=== PATIENT | female | born 2000 | race Caucasian/White ===

== ENCOUNTER 2020-09-18 10:52 | Emergency (ER) | payer OTHER ==
[2020-09-18] MEDS ORDERED: ACETAMINOPHEN 325 MG TABLET PO ONE (11:38)
--- NOTE | 2020-09-18 11:39 | ER Document Report ---
ED Medical Screen (RME) - General Chief Complaint: Lower Abdominal Pain Stated Complaint: LOWBER ABDOMINAL PAIN Time Seen by Provider: 09/18/20 11:36 Primary Care Provider: ASHELY ROGERS CPNP [Primary Care Provider] - Follow up as needed Notes: Patient presents complaining of lower pelvic pain for the past 3 days. Patient states pain is worse to the left lower quadrant. Patient does report some vaginal discharge that is brown in color. Patient reports negative home test. Patient denies any urinary symptoms. I have greeted and performed a rapid initial assessment of this patient. A comprehensive ED assessment and evaluation of the patient, analysis of test results and completion of the medical decision making process will be conducted by additional ED providers. TRAVEL OUTSIDE OF THE [place] IN LAST 30 DAYS: No - Related Data Allergies/Adverse Reactions: No Known Allergies Allergy (Unverified 09/18/20 11:33) Past Medical History - Social History Chew tobacco use (# tins/day): No Frequency of alcohol use: Rare Drug Abuse: None Physical Exam - Vital signs Vitals: Temp Pulse Resp BP Pulse Ox 98.3 F 72 16 101/56 L 99 09/18/20 11:08 09/18/20 11:08 09/18/20 11:08 09/18/20 11:08 09/18/20 11:08 - Abdominal Tenderness: Tender - Lower pelvic tenderness, worse to left lower pelvic area, exam limited as patient is in chair Course - Vital Signs Vital signs: Temp Pulse Resp BP Pulse Ox 98.3 F 72 16 101/56 L 99 09/18/20 11:08 09/18/20 11:08 09/18/20 11:08 09/18/20 11:08 09/18/20 11:08 Doctor's Discharge - Discharge Referrals: ASHELY ROGERS CPNP [Primary Care Provider] - Follow up as needed
[2020-09-18 12:24] LABS: ABSOLUTE EOSINOPHILS # (AUTO) 0.1 10^3/uL (0.0-0.6); ABSOLUTE LYMPHOCYTES (AUTO) 1.7 10^3/uL (0.5-4.7); ABSOLUTE MONOCYTES (AUTO) 0.3 10^3/uL (0.1-1.4); ABSOLUTE NEUT (AUTO) 3.5 10^3/uL (1.7-8.2); BASOPHILS % (AUTO) 0.7 % (0-2); EOSINOPHILS % (AUTO) 0.9 % (0-6); HEMATOCRIT 37.7 % (36.0-47.0); HEMOGLOBIN 12.8 g/dL (12.0-15.5); LYMPHOCYTES % (AUTO) 29.9 % (13-45); MEAN CORPUSCULAR HEMOGLOBIN 29.2 pg (27.0-33.4); MEAN CORPUSCULAR VOLUME 86 fl (80-97); MONOCYTES % (AUTO) 6.2 % (3-13); PLATELET COUNT 169 10^3/uL (150-450); RED BLOOD COUNT 4.39 10^6/uL (3.72-5.28); RED CELL DISTRIBUTION WIDTH 12.9 % (11.5-14.0); SEGMENTED NEUTROPHILS % (AUTO) 62.3 % (42-78); TOTAL CELLS COUNTED % (AUTO) 100 %; WHITE BLOOD COUNT 5.6 10^3/uL (4.0-10.5)
[2020-09-18 12:39] LABS: BILIRUBIN,URINE NEGATIVE (NEGATIVE); GLUCOSE, URINE 50 mg/dL (NEGATIVE); KETONES,URINE NEGATIVE (NEGATIVE); LEUKOCYTE ESTERASE,URINE NEGATIVE (NEGATIVE); NITRITE,URINE NEGATIVE (NEGATIVE); PROTEIN,URINE 100 mg/dL (NEGATIVE); URINE SPECIFIC GRAVITY 1.009; UROBILINOGEN,URINE NEGATIVE mg/dL (<2.0)
[2020-09-18 12:40] LABS: APPEARANCE,URINE TURBID; COLOR,URINE RED
[2020-09-18 12:48] LABS: ANION GAP 5 (5-19); BLOOD UREA NITROGEN 8 mg/dL (7-20); CALCIUM 9.1 mg/dL (8.4-10.2); CARBON DIOXIDE 28 mmol/L (22-30); CHLORIDE 104 mmol/L (98-107); GLUCOSE 83 mg/dL (75-110); POTASSIUM 4.4 mmol/L (3.6-5.0)
--- NOTE | 2020-09-18 12:49 | RADIOLOGY REPORT (SQ) ---
EXAM DESCRIPTION: U/S NON OB PEL TV W/DOPPLER IMAGES COMPLETED DATE/TIME: 09/18/2020 12:38 pm REASON FOR STUDY: pelvic pain, worse to L side COMPARISON: None. TECHNIQUE: Dynamic and static grayscale images acquired of the pelvis via transvaginal approach and recorded on PACS. Additional selected color Doppler and spectral images recorded. LIMITATIONS: None. FINDINGS: UTERUS: Contour normal. No mass. ENDOMETRIAL STRIPE: No focal or generalized thickening. No masses. CERVIX: 2 cm. No nabothian cysts. RIGHT OVARY AND DOPPLER: Normal size. No worrisome masses. Several follicles are seen. Normal arter ial vascular flow without evidence for torsion. LEFT OVARY AND DOPPLER: Normal size. No worrisome masses. Normal arterial vascular flow without evide nce for torsion. FREE FLUID: Minimal free fluid in the posterior cul de sac. OTHER: No other significant finding. MEASUREMENTS: UTERUS: 8 x 3.8 x 3.7 cm. ENDOMETRIAL STRIPE: 4 mm. RIGHT OVARY: 3.5 x 3.5 x 2.1 cm. LEFT OVARY: 2.6 x 1.8 x 1.8 cm. IMPRESSION: The study is essentially normal. There are several follicles on the right ovary. Corre late clinically for polycystic ovarian syndrome. TECHNICAL DOCUMENTATION: JOB ID: [id number] 2010 [employer]- All Rights Reserved Reading location - IP/workstation name: [email or web address]
[2020-09-18 13:54] LABS: CHLAM PCR NOT DETECTED (NOT DETECT)
--- NOTE | 2020-09-18 14:20 | ER Document Report ---
ED General - General Chief Complaint: Lower Abdominal Pain Stated Complaint: LOWBER ABDOMINAL PAIN Time Seen by Provider: 09/18/20 11:36 Primary Care Provider: ASHELY ROGERS CPNP [NO LOCAL MD] - Follow up as needed TRAVEL OUTSIDE OF THE [place] IN LAST 30 DAYS: No - HPI Notes: Patient is a 20 y/o female with no medical hx who presents with left pelvic pain for the past three days. She also reports vaginal bleeding and brown discharge. She denies dysuria, nausea, vomiting, diarrhea, chest pain, shortness of breath and fever. Patient states her LMP was 2 weeks ago. She has not taken anything for symptom relief. - Related Data Allergies/Adverse Reactions: No Known Allergies Allergy (Unverified 09/18/20 11:33) Past Medical History - General Information source: Patient - Social History Smoking Status: Never Smoker Chew tobacco use (# tins/day): No Frequency of alcohol use: Rare Drug Abuse: None Family History: Reviewed & Not Pertinent Patient has homicidal ideation: No Review of Systems - Review of Systems Constitutional: No symptoms reported EENT: No symptoms reported Cardiovascular: No symptoms reported Respiratory: No symptoms reported Gastrointestinal: No symptoms reported Genitourinary: See HPI Female Genitourinary: See HPI Musculoskeletal: No symptoms reported Skin: No symptoms reported Hematologic/Lymphatic: No symptoms reported Neurological/Psychological: No symptoms reported Physical Exam - Vital signs Vitals: Temp Pulse Resp BP Pulse Ox 98.3 F 72 16 101/56 L 99 09/18/20 11:08 09/18/20 11:08 09/18/20 11:08 09/18/20 11:08 09/18/20 11:08 - Notes Notes: PHYSICAL EXAMINATION: VITALS: Vitals reviewed and within normal limits. GENERAL: Well-appearing, well-nourished and in no acute distress. HEAD: Atraumatic, normocephalic. LUNGS: Breath sounds clear to auscultation bilaterally and equal. No wheezes, rales, or rhonchi. HEART: Regular, rate, and rhythm without murmurs. ABDOMEN: Soft, nontender, normoactive bowel sounds. No guarding, no rebound. No masses appreciated. EXTREMITIES: Normal range of motion, no pitting or edema. No cyanosis. NEUROLOGICAL: No focal neurological deficits. Moves all extremities spontaneously and on command. PSYCH: Normal mood, normal affect. SKIN: Warm, Dry, normal turgor, no rashes or lesions noted. Course - Re-evaluation Re-evalutation: Patient is a 20-year-old female who presents with left pelvic pain and vaginal bleeding for the past 3 days. Vital signs are stable and normal. On exam, abdo men is soft and nontender with active bowel sounds. Pelvic exam deferred by patient. CBC and BMP are unremarkable and within normal limits. Serum hCG is negative. UA shows elevated protein of 100, elevated glucose of 50, and enlargement of blood, however, this is consistent with her current vaginal bleeding. Gonorrhea and Chlamydia PCR negative. Transvaginal ultrasound is read as "essentially normal. There are several follicles on the right ovary. Correlate clinically for polycystic ovarian syndrome." Discussed lab work and ultrasound results with patient. I have a low suspicion for any emergent etiology. I advised that the patient follow-up with her [facility]. Patient has an appointment in 2 days. Return precautions given. Patient will be discharged home. Patient understands and is in agreement with the plan. - Vital Signs Vital signs: Temp Pulse Resp BP Pulse Ox 98.1 F 73 16 97/59 L 100 09/18/20 14:00 09/18/20 14:00 09/18/20 14:00 09/18/20 14:00 09/18/20 14:00 - Laboratory Result Diagrams: 09/18/20 11:54 09/18/20 11:54 Laboratory results interpreted by me: 09/18/20 11:54 Urine Protein 100 H Urine Glucose (UA) 50 H Urine Blood LARGE H Urine Ascorbic Acid 20 H - Diagnostic Test Radiology reviewed: Reports reviewed Radiology results interpreted by me: Transvaginal US 09/18/20 11:38 IMPRESSION: The study is essentially normal. There are several follicles on the right ovary. Correlate clinically for polycystic ovarian syndrome. Discharge - Discharge Clinical Impression: Vaginal bleeding Condition: Stable Disposition: HOME, SELF-CARE Additional Instructions: Vaginal Bleeding You were seen today for dysfunctional uterine bleeding. This is when you h ave vaginal bleeding and abdominal cramping off of your normal menstrual cycle. You need to follow-up with [facility] or your primary care physician the next 1-3 days. Return immediately if you worsening pain, you began bleeding through more than 2 pads per hour for more than 3 hours, you pass out, have persistent vomiting, develop a fever greater than 100.4F, or any other symptoms that are concerning to you. Referrals: ASHELY ROGERS CPNP [NO LOCAL MD] - Follow up as needed
[2020-09-18 14:35] VITALS: BP 97/59
== END 2020-09-18 14:33 | disposition home or self-care (01) ==
LOC: ER 10:52
DX: N93.8 Other specified abnormal uterine and vaginal bleeding (principal); R10.30 Lower abdominal pain, unspecified; R10.2 Pelvic and perineal pain
CPT/HCPCS: 36415; 76830; 80048; 81001; 84703; 85025; 87491; 87591; 93976; 99284